=== PATIENT | female | born 1995 | race Caucasian/White ===

== ENCOUNTER 2017-03-29 05:09 | Day surgery (SDC) | payer MEDICAID ==
[~2017-03-29 05:09] MED LIST: OGESTREL; ORTHO TRI-7 DAYSX 3 PO
[2017-03-29 06:06] LABS: BASOPHILS 0.5 % (0-2); HEMATOCRIT 38.7 % (36.0-48.0); HEMOGLOBIN 12.8 g/dL (12-16); IMMATURE GRANULOCYTES 0.2 % (0-5); LYMPHOCYTES 44.4 % (15-50); MCH 27.8 pg (26.0-34.0); MCHC 33.1 g/dL (31.0-37.0); MCV 84.1 fL (80.0-100.0); MEAN PLATELET VOLUME 9.5 fL (7.4-10.4); MONOCYTES 7.6 % (2-11); NEUTROPHILS 46.3 % (40-80); PLATELET COUNT 265 10x3/uL (130-400); RDW 13.7 % (11.5-14.5)
[2017-03-29 06:17] VITALS: BP 108/93; BMI 36.0
[2017-03-29 06:23] LABS: CALC OSMOLALITY 278 mosm/kg (275-300); CALCIUM 8.7 mg/dL (8.5-10.1); CARBON DIOXIDE 22.5 mmol/L (21.0-32.0); CHLORIDE - SERUM 108 mmol/L (98-107); CREATININE - SERUM 0.7 mg/dL (0.6-1.3); GLUCOSE 90 mg/dL (74-106); POTASSIUM - SERUM 4.3 mmol/L (3.5-5.1); SODIUM 140 mmol/L (136-145); UREA NITROGEN 12 mg/dL (7-18); eGFR NON AFRICAN AMERICAN > 90 mL/min (90-120)
[2017-03-29 06:44] LABS: HCG URINE NEGATIVE (NEGATIVE)
[2017-03-29] MEDS ORDERED: HYDROCODONE-APA1 TAB PO (08:49)
--- NOTE | 2017-03-29 16:32 | NUR ---
1327 DRESSED. AWAKE & ALERT. GIVEN DISCHARGE INFORMATION INCLUDING: RX: NORCO 10/325MG, MED REC., [facility] OUTPATENT DISCHARGE INSTRUCTIONS, & RTC APPT.. PT VOICED UNDERSTANDING. TO PRIVATE CAR PER WHEELCHAIR BY VOLUNTEER. HOME WITH PARENTS. Josefina BRENNAN R.N.
--- NOTE | 2017-04-01 12:36 | OP ---
PATIENT NAME: ANI GARCIA MEDICAL RECORD: [id number] :96 LOCATION:D.OPS ADMISSION DATE: SURGEON: LUIS M VALENZUELA MD DATE OF OPERATION: 03/29/2017 PREOPERATIVE DIAGNOSES: 1. Biliary dyskinesia. 2. Idiopathic thrombocytopenic purpura. POSTOPERATIVE DIAGNOSES: 1. Biliary dyskinesia. 2. Idiopathic thrombocytopenic purpura. PROCEDURE: Laparoscopic cholecystectomy. SURGEON: Luis M Valenzuela MD. REPORT OF PROCEDURE: The patient's abdomen was prepped and draped in sterile fashion. A cutdown was made on the superior aspect of the umbilicus, 0 Vicryls were placed in the fascia bilaterally and the fascia was incised with a 15 blade. I then bluntly entered the peritoneal cavity and placed a 12-mm Kobe port. Under direct visualization, a 5-mm trocar was placed in the epigastrium and 2 more 5-mm trocars were placed in the right subcostal region. The gallbladder was grasped and elevated. There were some inflammatory adhesions present to the fundus of the gallbladder. The gallbladder itself did not appear to be acutely inflamed. The cystic artery and duct were dissected free and these were clipped proximally and distally and ligated in standard fashion. The gallbladder was taken off the liver bed using electrocautery and placed into the right upper quadrant. Any bleeding from the liver bed was then treated with electrocautery. At this point, the ports and insufflation were then removed and the gallbladder was taken out through the umbilicus. The umbilical fascia was closed with interrupted 0 Vicryls times 3. The wounds were irrigated out with normal saline and infused with 10 mL of 0.25% Marcaine with epinephrine. The skin incisions were all closed with subcutaneous 5-0 Monocryl and dressed appropriately. COMPLICATIONS: None. CONDITION: Stable. ANESTHESIA: General endotracheal and local. BLOOD LOSS: Minimal. 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
== END 2017-03-29 13:27 | disposition home or self-care (01) ==
LOC: D.OPS 05:09 → D.PAN 07:30 → D.OPS 13:27
PROVIDERS: Surgery
DX: K82.8 Other specified diseases of gallbladder (principal); D69.3 Immune thrombocytopenic purpura; R10.9 Unspecified abdominal pain; Z01.812 Encounter for preprocedural laboratory examination